=== PATIENT | female | born 1965 | race Caucasian/White ===

== ENCOUNTER → 2017-03-06 | Outpatient (CLI) | payer BC ==
[~2017-03-06] MED LIST: CETI10TA10 PO; LORA10CA2 PO; PANT40TA PO; RIZA10TA18 PO; [UNRECOGNIZED DRUG - CODE] TOP
--- NOTE | 2017-03-07 15:28 | MAMMOGRAPHY REPORT ---
BILATERAL DIGITAL SCREENING MAMMOGRAM TOMOSYNTHESIS WITH CAD: 03/06/2017 CLINICAL HISTORY: Routine screening. Patient has no complaints. TECHNIQUE: Breast tomosynthesis in addition to standard 2D mammography was performed. Current study was also evaluated with a Computer Aided Detection (CAD) system. COMPARISON: Comparison is made to exams dated: 02/29/2016 mammogram, 05/04/2015 ultrasound biopsy, ultrasound, 02/25/2015 mammogram, 02/24/2014 mammogram, and 02/14/2011 mammogram - [facility]. BREAST COMPOSITION: The tissue of both breasts is heterogeneously dense, which may obscure small ma sses. FINDINGS: A linear scar marker overlies the periareolar 12:00 left breast, denoting the area of dinah or surgical excision. No new suspicious mass, architectural distortion or cluster of microcalcifica tions is seen. IMPRESSION: ACR BI-RADS CATEGORY 1: NEGATIVE There is no mammographic evidence of malignancy. A 1 year screening mammogram is recommended. The p atient will receive written notification of the results. Approximately 10% of breast cancers are not detected with mammography. A negative mammographic repor t should not delay biopsy if a clinically suggestive mass is present. Vicenta South M.D. ay/:03/06/2017 21:57:29 Wireless Field Technician: Mercy MENDOZA)(Jorge L), [facility] letter sent: Normal 1/2 BI-RADS Code: ACR BI-RADS Category 1: Negative
== END | disposition home or self-care (01) ==
LOC: C.MAMM 16:31
PROVIDERS: ATTEND Obstetrics & Gynecology
DX: Z12.31 Encounter for screening mammogram for malignant neoplasm of breast (principal)

== ENCOUNTER → 2018-03-07 | Outpatient (CLI) | payer OTHER ==
--- NOTE | 2018-03-08 14:45 | MAMMOGRAPHY REPORT ---
BILATERAL DIGITAL SCREENING MAMMOGRAM TOMOSYNTHESIS WITH CAD: 03/07/2018 CLINICAL HISTORY: Routine screening. Patient has no complaints. TECHNIQUE: Breast tomosynthesis in addition to standard 2D mammography was performed. Current study was also evaluated with a Computer Aided Detection (CAD) system. COMPARISON: Comparison is made to exams dated: 03/06/2017 mammogram, 02/29/2016 mammogram, 02/25/2015 m ammogram, 02/24/2014 mammogram, 02/18/2013 mammogram, and 02/16/2012 mammogram - [facility]. BREAST COMPOSITION: The tissue of both breasts is heterogeneously dense, which may obscure small mas ses. FINDINGS: There is new fullness/asymmetry of the subareolar left breast on the CC view measuring 13 x 13 mm. This is not appreciated in the MLO projection and could be secondary to positioning. 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 There are circumscribed subcentimeter fluctuating masses in the lower inner left breast and lateral r ight breast, which most likely represent fluctuating cysts. No other suspicious mass, architectural distortion or cluster of microcalcifications is seen. IMPRESSION: ACR BI-RADS CATEGORY 0: INCOMPLETE EVALUATION: NEED ADDITIONAL IMAGING EVALUATION The new fullness/asymmetry in the subareolar left breast in the CC projection needs additional imagin g evaluation. The patient will be called to schedule an appointment. Approximately 10% of breast cancers are not detected with mammography. A negative mammographic report should not delay biopsy if a clinically suggestive mass is present. Vicenta South M.D. ay/:03/07/2018 16:59:07 Software Engineering Analyst: [place] TERRELL(R)(M), [facility] letter sent: Addl Imaging 0 BI-RADS Code: ACR BI-RADS Category 0: Incomplete Evaluation: Need Additional Imaging Evaluation
== END | disposition home or self-care (01) ==
LOC: C.MAMM 16:26
PROVIDERS: ATTEND Obstetrics & Gynecology
DX: Z12.31 Encounter for screening mammogram for malignant neoplasm of breast (principal); N64.89 Other specified disorders of breast

== ENCOUNTER → 2018-03-14 | Outpatient (CLI) | payer OTHER ==
--- NOTE | 2018-03-14 15:46 | MAMMOGRAPHY REPORT ---
UNILATERAL LEFT DIGITAL DIAGNOSTIC MAMMOGRAM TOMOSYNTHESIS AND TARGETED LEFT ULTRASOUND: 03/14/2018 CLINICAL HISTORY: Callback from screening mammogram for left subareolar asymmetry. 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 TECHNIQUE: Breast tomosynthesis in addition to standard 2D mammography was performed. Spot compress ion left cc tomosynthesis images were obtained. COMPARISON: Comparison is made to exams dated: 03/07/2018 mammogram, 03/06/2017 mammogram, 02/29/2016 m ammogram, 02/25/2015 mammogram, 02/24/2014 mammogram, and 02/18/2013 mammogram - [facility]. BREAST COMPOSITION: The tissue of the left breast is heterogeneously dense, which may obscure small masses. FINDINGS: The previously described left subareolar asymmetry seen on the cc view effaces to a baselin e appearance on the additional spot compression view. Minimal density is seen in this region on the additional view which has the appearance of normal fibroglandular tissue on the tomosynthesis images and appears similar to prior exams including the 2016 and 2015 exams. No suspicious masses or other suspicious abnormalities are seen on the additional images. Targeted ultrasound was performed of the left subareolar breast. No suspicious masses or other suspi cious sonographic abnormalities are evident. Incidentally noted in the left 3:00 subareolar/periareo lar breast is in oval circumscribed anechoic 4 x 4 mm mass, consistent with a benign simple cyst. IMPRESSION: ACR BI-RADS CATEGORY 2: BENIGN, TARGETED ULTRASOUND ACR BI-RADS CATEGORY 2: BENIGN The left breast asymmetry effaces on the additional views, without corresponding suspicious sonograph ic abnormality evident. Findings are benign and compatible with normal fibroglandular tissue. There is no mammographic or targeted sonographic evidence of malignancy. A 1 year screening mammogram is r ecommended. The patient has been verbally notified of the results. Approximately 10% of breast cancers are not detected with mammography. A negative mammographic report should not delay biopsy if a clinically suggestive mass is present. Sandy Crowe M.D. ah/:03/14/2018 10:47:06 Research Recruiter: Emiliano Melendrez RT(R)(M), [facility] letter sent: Normal 1/2 BI-RADS Code: ACR BI-RADS Category 2: Benign Ultrasound BI-RADS: ACR BI-RADS Category 2: Benign
== END | disposition home or self-care (01) ==
LOC: C.MAMM 10:26
PROVIDERS: ATTEND Obstetrics & Gynecology
DX: N64.89 Other specified disorders of breast (principal)